=== PATIENT | female | born 1965 | race Two or more races ===

== ENCOUNTER 2020-07-30 18:26 | Emergency (ER) | payer OTHER ==
[2020-07-30 18:35] VITALS: BP 146/74
--- NOTE | 2020-07-30 19:14 | ED Physician Documentation ---
PD HPI SKIN - Stated complaint Stated Complaint: RT FINGER LAC - Chief complaint Chief Complaint: Laceration - History obtained from History obtained from: Patient - Additional information Additional information: Pt was learning to carve wood and accidentally slipped while holding a curved metal hooked tool. She cut her right 2nd finger. Was unable to stop the bleeding at home so presented here. Minimal pain, denies numbness/tingling or difficulty moving the finger. She believes she had a Td at her recent physical exam at the start of the year. 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 : None HEENT: None Psych: None Musculoskeletal: None Derm: None - Past Surgical History Past Surgical History: No - Allergies Allergies/Adverse Reactions: Allergies Allergy/AdvReac Type Severity Reaction Status Date / Time amoxicillin AdvReac Itching Verified 07/30/20 18:32 - Social History Does the pt smoke?: No Smoking Status: Former smoker Does the pt drink ETOH?: Yes Does the pt have substance abuse?: No - Immunizations Immunizations are current?: Yes PD ED PE NORMAL - Vitals Vital signs reviewed: Yes - General General: Alert and oriented X 3, No acute distress, Well developed/nourished - Cardiac Cardiac: RRR, No murmur - Respiratory Respiratory: No respiratory distress, Clear bilaterally - Derm Derm: Normal color, Warm and dry, No rash, Other (shallow 1.5cm laceration right 2nd finger. moves finger w/o difficulty ) - Extremities Extremities: No deformity, No tenderness to palpate, Normal ROM s pain - Neuro Neuro: Alert and oriented X 3 Eye Opening: Spontaneous Motor: Obeys Commands Verbal: Oriented GCS Score: 15 Results - Vitals Vitals: Vital Signs - 24 hr 07/30/20 18:32 Temperature 36.5 C Heart Rate 82 Respiratory 14 Rate Blood Pressure 146/74 H O2 Saturation 98 Oxygen O2 Source Room air PD MEDICAL DECISION MAKING - ED course Complexity details: d/w patient ED course: Pt sustained a shallow laceration to her right finger. A finger tourniquet was applied and wound evaluated. It did not require suture closure. THe wound was cleaned with NS and closed w/ dermabond and a pressure dressing applied. TQ removed after about 5 minutes, no further bleeding. Pt advised of home wound care instructions and return precautions. Departure - Departure Disposition: 01 Home, Self Care Clinical Impression: Laceration Condition: Good Instructions: ED Laceration Ext Skin Glue Comments: You sustained a finger laceration. It did not require sutures but we cleaned it and closed it with surgical glue and a pressure dressing. The dressing should be removed in an hour. You may cover with bandaid. Perform regular hand hygiene but do not soak the wound. If you develop redness, swelling, drainage, increased pain or otherwise worsening symptoms, return to the ER. Please ensure your tetanus is up to date as we discussed. Discharge Date/Time: 07/30/20 19:20
== END 2020-07-30 19:20 | disposition home or self-care (01) ==
LOC: ED 18:26
DX: S61.210A Laceration without foreign body of right index finger without damage to nail, initial encounter (principal); W27.8XXA Contact with other nonpowered hand tool, initial encounter; Y93.89 Activity, other specified; Z87.891 Personal history of nicotine dependence
CPT/HCPCS: 99282